=== PATIENT | female | born 1995 ===

== ENCOUNTER 2019-01-13 06:35 | Outpatient (CLI) | payer OTHER | END 2019-01-13 07:52 | disposition home or self-care (01) | LOC: LAB 06:35 | DX: D57.1 Sickle-cell disease without crisis (principal); D68.0 Von Willebrand disease ==

== ENCOUNTER → 2019-06-11 17:32 | Outpatient (CLI) | payer OTHER | END | disposition home or self-care (01) | LOC: LAB 17:32 | DX: O09.73 Supervision of high risk pregnancy due to social problems, third trimester (principal); Z3A.36 36 weeks gestation of pregnancy; Z11.4 Encounter for screening for human immunodeficiency virus [HIV] ==

== ENCOUNTER 2019-06-19 15:30 | Inpatient (IN) | payer OTHER ==
[~2019-06-19] VITALS: Ht 157.5 cm; Wt 67.6 kg
[2019-07-01] MEDS ORDERED: PRENATAL + DHA1 EAC1 PO (09:08)
[2019-07-01] MEDS ORDERED: FAMOTIDINE40 MG PO (09:09)
[2019-07-01] MEDS ORDERED: SLOW FE142 MG (09:10)
== END 2019-07-03 13:19 | disposition home or self-care (01) | DRG 807 ==
LOC: LDR 07-01 06:06 → OB/GYN 07-01 06:06
PROVIDERS: ADMIT Obstetrics & Gynecology
PROC: 10E0XZZ Delivery of Products of Conception, External Approach (ICD-10-PCS; principal; 2019-07-01)
PROC: 0HQ9XZZ Repair Perineum Skin, External Approach (ICD-10-PCS; 2019-07-01)
PROC: 3E033VJ Introduction of Other Hormone into Peripheral Vein, Percutaneous Approach (ICD-10-PCS; 2019-07-01)
PROC: 10907ZC Drainage of Amniotic Fluid, Therapeutic from Products of Conception, Via Natural or Artificial Opening (ICD-10-PCS; 2019-07-01)
PROC: 4A1HXCZ Monitoring of Products of Conception, Cardiac Rate, External Approach (ICD-10-PCS; 2019-07-01)
DX: O70.0 First degree perineal laceration during delivery (principal); Z37.0 Single live birth; Z3A.39 39 weeks gestation of pregnancy; Z22.330 Carrier of Group B streptococcus

== ENCOUNTER 2024-03-03 14:00 | Inpatient (IN) | payer OTHER ==
[~2024-03-03] VITALS: Ht 157.5 cm; Wt 82.6 kg
[~2024-03-03 14:00] MED LIST: FAMOTIDINE40 MG PO; PRENATAL + DHA1 EAC1 PO; SLOW FE142 MG
[2024-03-04] VITALS (11 sets, daily range): BP systolic 93–124; BP diastolic 48–67
[2024-03-04 06:55] LABS: HEMATOCRIT 32.3 % (36.0-45.00); HEMOGLOBIN 11.5 g/dL (12.0-15.00); MEAN CELL VOLUME 73.3 fL (80.00-100.00); MEAN CORPUSCULAR HEMOGLOBIN 26.2 pg (27.00-32.0); MEAN CORPUSCULAR HGB CONC 35.7 g/dl (32.0-36.0); PLATELET COUNT 214 K/uL (150-450); RED BLOOD COUNT 4.41 M/uL (4.00-6.00); RED CELL DISTRIBUTION WIDTH 16.9 % (11.5-14.5)
[2024-03-04] MEDS ORDERED: AMPICILLIN SODIUM 2,000 MG VIAL IV ONE (07:00)
[2024-03-04] MEDS ORDERED: DESMOPRESSIN ACETATE IV ONE (07:00)
[2024-03-04] MEDS ORDERED: RINGERS SOLUTION,LACTATED 1,000 ML IV SCH (07:00)
[2024-03-04 07:11] LABS: INR 0.94; PARTIAL THROMBOPLASTIN TIME 31.5 SECONDS (22.0-34.0); PROTHROMBIN TIME 10.3 SECONDS (9.0-11.5)
[2024-03-04 07:30] LABS: ALBUMIN 2.7 gm/dL (3.4-5.0); BILIRUBIN TOTAL 0.56 mg/dL (0.3-1.2); CALCIUM 9.3 mg/dL (8.5-10.1); CREATININE SERUM 0.52 mg/dL (0.55-1.02); GFR 141.45; GLOBULINA 3.9 G/DL (2.4-3.5); POTASSIUM 3.88 mEq/L (3.5-5.1); TOTAL PROTEIN 6.6 gm/dL (6.4-8.2)
[2024-03-04] MEDS ORDERED: DESMOPRESSIN ACETATE 4 MCG/ML AMPUL IV SCH (08:00)
[2024-03-04] MEDS ORDERED: OXYTOCIN 500 ML IV ONE (09:00)
[2024-03-04] MEDS ORDERED: AMPICILLIN SODIUM 1,000 MG VIAL IV SCH (09:00)
[2024-03-04] MEDS ORDERED: OXYTOCIN 1,000 ML IV SCH (11:30)
[2024-03-04] MEDS ORDERED: IBUprofen 400 MG TABLET PO PRN (11:30)
[2024-03-04] MEDS ORDERED: CHLORHEXIDINE GLUCONATE 120 ML BOTTLE TOP ONE (11:30)
[2024-03-04] MEDS ORDERED: FAMOtidine 20 MG TABLET PO SCH (17:00)
[2024-03-04] MEDS ORDERED: ERYTHROMYCIN BASE OPHT 1GM EACH TUBE OP ONE (22:30)
[2024-03-05 02:34] VITALS: BP 100/61
[2024-03-05 07:11] LABS: HEMATOCRIT 29.9 % (36.0-45.00); HEMOGLOBIN 10.7 g/dL (12.0-15.00); MEAN CELL VOLUME 74.6 fL (80.00-100.00); MEAN CORPUSCULAR HEMOGLOBIN 26.7 pg (27.00-32.0); MEAN CORPUSCULAR HGB CONC 35.7 g/dl (32.0-36.0); PLATELET COUNT 192 K/uL (150-450); RED BLOOD COUNT 4.01 M/uL (4.00-6.00); RED CELL DISTRIBUTION WIDTH 16.5 % (11.5-14.5)
[2024-03-05 08:54] VITALS: BP 113/67
[2024-03-05 12:35] VITALS: BP 110/69
[2024-03-05 16:59] VITALS: BP 96/62
[2024-03-05 21:08] VITALS: BP 106/69
[2024-03-06 00:16] VITALS: BP 110/73
[2024-03-06 08:32] VITALS: BP 102/67
[2024-03-06 13:58] VITALS: BP 103/65
== END 2024-03-06 20:43 | disposition home or self-care (01) | DRG 807 ==
LOC: OB/GYN 03-04 05:28 → LDR 03-04 05:28 → OB/GYN 03-04 12:56
PROVIDERS: ADMIT Obstetrics & Gynecology; ATTEND Obstetrics & Gynecology
PROC: 10E0XZZ Delivery of Products of Conception, External Approach (ICD-10-PCS; principal; 2024-03-04)
PROC: 4A1HXCZ Monitoring of Products of Conception, Cardiac Rate, External Approach (ICD-10-PCS; 2024-03-04)
DX: O80 Encounter for full-term uncomplicated delivery (principal); Z37.0 Single live birth; Z3A.39 39 weeks gestation of pregnancy; Z20.822 Contact with and (suspected) exposure to COVID-19